=== PATIENT | female | born 1950 | race Caucasian/White ===

== ENCOUNTER 2024-11-12 11:15 | Outpatient (RCR) | payer MEDICARE, OTHER, SELFPAY | END 2024-12-31 12:28 | disposition home or self-care (01) | LOC: HO.WCC 11:15 | PROVIDERS: PCP Internal Medicine; Visit Provider Surgery | DX: I87.332 Chronic venous hypertension (idiopathic) with ulcer and inflammation of left lower extremity (principal); L97.822 Non-pressure chronic ulcer of other part of left lower leg with fat layer exposed; L30.9 Dermatitis, unspecified; Z79.2 Long term (current) use of antibiotics; Z79.899 Other long term (current) drug therapy | CPT/HCPCS: 11042; 11045; 15271; 15275; 97597; 99212; Q4101 ==